=== PATIENT | male | born 1965 | race Caucasian/White ===

== ENCOUNTER 2019-11-20 18:22 | Emergency (ER) | payer MEDICAID ==
[~2019-11-20] VITALS: Ht 162.6 cm; Wt 63.5 kg
[~2019-11-20 18:22] MED LIST: ACET-8386 PO; COM5 PO; OMEP40EC24 PO
[2019-11-20 18:39] VITALS: BP 150/113
--- NOTE | 2019-11-20 18:43 | NUR ---
TRIAGE COMPLETE. VSS. RETURNED TO LOBBY TO WAIT FOR BED IN ED.
--- NOTE | 2019-11-20 20:55 | NUR ---
PT ABULATED TO BED 7 WITHOUT ASSISTANCE. GAIT IS STEADY.
--- NOTE | 2019-11-20 21:02 | NUR ---
PT 54 Y/O MALE BIB FOR R PLANTAR FOOT PAIN X1 DAY. PT STATES PAIN IS 10/10, SHARP AND NON RADIATING. PAIN IS AGRIVATED BY AMBULATION. EDEMA NOTED IN R ANKLE. PT STATES, " I TWISTED MY ANKLE AT WORK YESTERDAY ANF THATS WHEN THE FOOT PAIN STARTED. I DON'T FEEL PAIN IN MY ANKLE. PT DENIES COUGH, OR SOB. AFEBRILE. PT DENIES N/V/D/. RESPIRATIONS ARE EVEN AND UNLABORED. SKIN IS WARM AND DRY TO TOUCH. BED IN LOWEST POSITION AND LOCKED IN PLACE. AT BEDSIDE.
[2019-11-20] MEDS ORDERED: KETOROLAC 30 MG/ML VIAL IM ONE (21:50)
--- NOTE | 2019-11-20 21:52 | NUR ---
PT EDUCATED ON CRUTCH USE AND VERBALIZES UNDERSTANDING. POSTIERIOR SHORT SPLINT PLACED BY DAISY CUMMINS. POSITIVE PULSE S/P PLACEMENT OF SPLINT.
--- NOTE | 2019-11-20 22:15 | NUR ---
PT STATES DECREASE IN R FOOT PAIN FROM 10/10 TO 8/10 S/P IM MEDICATION GIVEN. PT RESTING IN BED R LEG ELEVATED. BED IN LOWEST POSITION AND LOCKED IN PLACE.
[2019-11-20 22:22] VITALS: BP 145/89
== END 2019-11-20 22:20 | disposition home or self-care (01) ==
LOC: MED 18:22
DX: S92.322A Displaced fracture of second metatarsal bone, left foot, initial encounter for closed fracture (principal); E11.9 Type 2 diabetes mellitus without complications; Z79.899 Other long term (current) drug therapy; X50.1XXA Overexertion from prolonged static or awkward postures, initial encounter; Y93.01 Activity, walking, marching and hiking; Y92.89 Other specified places as the place of occurrence of the external cause; Y99.8 Other external cause status
CPT/HCPCS: 29515; 73630; 96372; 99283; J1885

== ENCOUNTER 2021-07-18 13:23 | Inpatient (IN) | payer MEDICAID, SELFPAY ==
[~2021-07-18] VITALS: Ht 167.6 cm; Wt 52.8 kg
[~2021-07-18 13:23] MED LIST changes: -COM5 PO; +PROC-62 PO
[2021-07-18 13:54] VITALS: BP 112/64
--- NOTE | 2021-07-18 14:01 | NUR ---
PT TO [facility] RAMOS SENT TO LAB
[2021-07-18 15:07] LABS: APPEARANCE,URINE HAZY (CLEAR); BILIRUBIN,URINE 1+ (NEGATIVE); BLOOD, URINE 3+ (NEGATIVE); COLOR,URINE YELLOW (YELLOW); LEUKOCYTE ESTERASE ,URINE 1+ (NEGATIVE); NITRITE, URINE NEGATIVE (NEGATIVE); UGLUCOSE 3+ (NEGATIVE)
[2021-07-18 15:17] LABS: RBC,URINE 50-80 /HPF (0-5)
[2021-07-18 15:18] LABS: BASOPHILS % (AUTO) 0.1 % (0.0-2.0); EOSINOPHILS # (AUTO) 0.1 K/uL (0-0.4); EOSINOPHILS % (AUTO) 0.8 % (0.0-4.0); HEMATOCRIT 32.9 % (36-52); HEMOGLOBIN 10.8 g/dL (12.0-18.0); LYMPHOCYTES # (AUTO) 1.2 K/uL (2.0-11.5); LYMPHOCYTES % (AUTO) 6.3 % (20.5-51.1); MEAN CORPUSCULAR HEMOGLOBIN 30 pg (27-31); MEAN CORPUSCULAR HGB CONC 33 g/dL (33-37); MEAN CORPUSCULAR VOLUME 89.7 fL (80-94); MONOCYTES # (AUTO) 1.3 K/uL (0.8-1.0); MONOCYTES % (AUTO) 6.9 % (1.7-9.3); NEUTROPHILS # (AUTO) 15.8 K/uL (1.8-7.7); NEUTROPHILS % (AUTO) 85.9 % (42.2-75.2); PLATELET COUNT (AUTO) 540 K/uL (140-450); RED BLOOD CELL COUNT(AUTO) 3.67 MIL/uL (4.20-6.10); RED CELL DISTRIBUTION WIDTH 12.5 % (11.6-13.7); WHITE BLOOD COUNT (AUTO) 18.4 K/uL (4.8-10.8)
[2021-07-18 15:37] LABS: ALBUMIN 2.7 g/dL (3.4-5.0); ANION GAP 19.3 (8-16); CARBON DIOXIDE 19.9 mmol/L (21-32); CREATININE 1.5 mg/dL (0.6-1.3); POTASSIUM 4.2 mmol/L (3.5-5.1); TOTAL BILIRUBIN 1.1 mg/dL (0.0-1.0)
[2021-07-18] MEDS ORDERED: NACL 0.9% 1,000 ML IV ONE ×2 (15:45)
[2021-07-18] MEDS ORDERED: INSULIN REGULAR, HUMAN 100 UNIT/ML VIAL SUBQ ONE (17:30)
[2021-07-18] MEDS ORDERED: MORPHINE SULFATE 2 MG/ML SYR IVP ONE (17:45)
[2021-07-18] MEDS ORDERED: cefTRIAXone 1,000 MG VIAL ONE (18:13)
--- NOTE | 2021-07-18 18:22 | NUR ---
56/M presents to ED with c/o right testicular pain x4 days. Pt c/o swelling, pain to right testicle radiating to right groin. Patient also c/o polyuria, denies hematuria, dysuria or pain with urination. Patient denies any fever or chills. AOX4. Pt has hx of DM only taking oral medications at this time. hx DM
[2021-07-18] MEDS ORDERED: DOCUSATE SODIUM 100 MG GELCAP PO PRN (18:55)
[2021-07-18] MEDS ORDERED: ONDANSETRON 4 MG/2 ML VIAL IM/IVP PRN (18:55)
[2021-07-18] MEDS ORDERED: guaiFENesin DM 200/20 MG-10 ML 10 ML UDC PO PRN (18:55)
[2021-07-18] MEDS ORDERED: POTASSIUM CHLORIDE 10 MEQ TABER PO PRN (18:55)
[2021-07-18] MEDS ORDERED: ACETAMINOPHEN 325 MG TAB PO PRN (18:55)
[2021-07-18] MEDS ORDERED: ZOLPIDEM 5 MG TAB PO PRN (18:55)
[2021-07-18] MEDS ORDERED: DEXTROSE 50% 50 ML SYR IVP PRN (19:00)
--- NOTE | 2021-07-18 19:23 | NUR ---
REPORT RECEIVED FROM MAAME ANG FOR CONTINUATION OF PATIENT CARE AT THIS TIME.
[2021-07-18 19:28] LABS: BARBITURATE, URINE NEGATIVE ng/ml (NEG <=200)
[2021-07-18 19:29] LABS: BENZODIAZEPINE, URINE NEGATIVE ng/mL (NEG <=200); CANNABINOID, URINE NEGATIVE ng/mL (NEG <=50); COCAINE, URINE NEGATIVE ng/mL (NEG <=300); OPIATE, URINE NEGATIVE ng/mL (NEG <=2000); PHENCYCLIDINE SCREEN,URINE NEGATIVE ng/mL (NEG <=25)
[2021-07-18 19:29] LABS: CHOL/HDL RATIO 3.3 (1-4.5); FREE T4 (FREE THYROXINE) 1.35 ng/dL (0.76-1.46); MAGNESIUM 2.6 mg/dL (1.8-2.4); PHOSPHORUS 4.4 mg/dL (2.5-4.9); THYROID STIMULATING HORMONE 0.93 uIU/mL (0.34-3.74)
[2021-07-18 19:30] LABS: PROTHROMBIN TIME 9.1 secs (10.8-13.4)
--- NOTE | 2021-07-18 19:30 | NUR ---
PATIENT LAYING IN BED LOCKED IN LOWEST POSITION W X1 SIDE RAIL UP. PATIENT DENIES ANY PAIN AT THIS TIME. BREATHING EVEN AND UNLABORED. NAD NOTED, WILL CONTINUE TO MONITOR. CONNECTED TO MONITOR W VSS.
--- NOTE | 2021-07-18 21:13 | NUR ---
PATIENT LAYING IN BED W EYES CLOSED IN R LATERAL POSITION. BED LOCKED IN LOWEST POSITION W X1 SIDE RAIL UP. BREATHING EVEN AND UNLABORED. NAD NOTED, WILL CONTINUE TO MONITOR.
[2021-07-18] MEDS: BLOOD GLUCOSE MONITORING 1 DEV DEV FS SCH (22:46)
[2021-07-18] MEDS: NACL 0.9% 1,000 ML IV SCH (22:46)
[2021-07-18] MEDS: INSULIN LISPRO SLIDING SCALE 100 UNITS/ML VIAL SUBQ PRN (22:54)
--- NOTE | 2021-07-18 23:03 | NUR ---
PATIENT LAYING IN BED W EYES CLOSED IN R LATERAL POSITION. BED LOCKED IN LOWEST POSITION W X1 SIDE RAIL UP. BLANKET ON. BREATHING EVEN AND UNLABORED. NAD NOTED, WILL CONTINUE TO MONITOR.
--- NOTE | 2021-07-19 02:10 | NUR ---
PATIENT REPORTING 6/10 PAIN TO GROIN AREA. REQUESTING PAINMEDICATION AT THIS TIME. VSS.
--- NOTE | 2021-07-19 02:15 | NUR ---
MARISA SAMPLE COLECTED FROM PATIENT NARES AND SENT TO LAB.
[2021-07-19] MEDS: HYDROcodone/APAP 7.5/325 MG 1 TAB PO PRN ×3 (02:17→18:08)
--- NOTE | 2021-07-19 04:35 | NUR ---
PATIENT LAYING IN BED W EYES CLOSED IN L LATERAL POSITION. BED LOCKED IN LOWEST POSITION W X1 SIDE RAIL UP. BLANKET ON. 0.9 NS FLUIDS RUNNING TO L ARM AT 90 ML/HR W 295ML VTBI. BREATHING EVEN AND UNLABORED. NAD NOTED, WILL CONTINUE TO MONITOR.
--- NOTE | 2021-07-19 06:26 | NUR ---
PATIENT LAYING IN BED W EYES CLOSED IN SUPINE POSITION. BED LOCKED IN LOWEST POSITION W X1 SIDE RAIL UP. BLANKET ON. 0.9 NS FLUIDS RUNNING TO L ARM AT 90 ML/HR W 225ML VTBI. BREATHING EVEN AND UNLABORED. NAD NOTED, WILL CONTINUE TO MONITOR. CONNECTED TO MONITOR W VSS.
[2021-07-19] MEDS: BLOOD GLUCOSE MONITORING 1 DEV DEV FS SCH ×4 (06:45→21:03)
--- NOTE | 2021-07-19 06:50 | NUR ---
PATIENT AMBULATED TO BATHROOM W STEADY GAIT. DENIES ANY PAIN AT THIS TIME.
[2021-07-19] MEDS: INSULIN LISPRO SLIDING SCALE 100 UNITS/ML VIAL SUBQ PRN ×4 (06:54→21:14)
--- NOTE | 2021-07-19 07:22 | NUR ---
Pt report given to MAAME DURBIN AND MAAME DAVID. Transfer of care at this time.
--- NOTE | 2021-07-19 07:23 | NUR ---
REPORT AND TRANSFER OF CARE RECEIVED FROM MAAME BUENROSTRO.
--- NOTE | 2021-07-19 07:24 | NUR ---
LABS AT BEDSIDE COLLECTING BLOOD SAMPLES.
[2021-07-19 07:59] LABS: BASOPHILS % (AUTO) 0.2 % (0.0-2.0); EOSINOPHILS # (AUTO) 0.1 K/uL (0-0.4); EOSINOPHILS % (AUTO) 0.7 % (0.0-4.0); HEMATOCRIT 30.3 % (36-52); HEMOGLOBIN 10.1 g/dL (12.0-18.0); LYMPHOCYTES # (AUTO) 1.3 K/uL (2.0-11.5); LYMPHOCYTES % (AUTO) 7.7 % (20.5-51.1); MEAN CORPUSCULAR HEMOGLOBIN 30 pg (27-31); MEAN CORPUSCULAR HGB CONC 33 g/dL (33-37); MEAN CORPUSCULAR VOLUME 88.9 fL (80-94); MONOCYTES # (AUTO) 1.2 K/uL (0.8-1.0); MONOCYTES % (AUTO) 7.1 % (1.7-9.3); NEUTROPHILS # (AUTO) 13.9 K/uL (1.8-7.7); NEUTROPHILS % (AUTO) 84.3 % (42.2-75.2); PLATELET COUNT (AUTO) 479 K/uL (140-450); RED BLOOD CELL COUNT(AUTO) 3.41 MIL/uL (4.20-6.10); RED CELL DISTRIBUTION WIDTH 12.9 % (11.6-13.7); WHITE BLOOD COUNT (AUTO) 16.5 K/uL (4.8-10.8)
[2021-07-19 08:03] LABS: ANION GAP 17.6 (8-16); CARBON DIOXIDE 17.3 mmol/L (21-32); CREATININE 1.1 mg/dL (0.6-1.3); POTASSIUM 3.9 mmol/L (3.5-5.1)
--- NOTE | 2021-07-19 09:29 | NUR ---
DR AQUINO AT BEDSIDE SPEAKING WITH PATIENT.
[2021-07-19] MEDS: PANTOPRAZOLE 40 MG TABEC PO SCH (09:38)
--- NOTE | 2021-07-19 09:39 | NUR ---
1000mL 0.9% NS FLUIDS INITIATED/CONTINUED @ 90 ML/HR.
[2021-07-19] MEDS: NACL 0.9% 1,000 ML IV SCH ×2 (09:40→17:09)
--- NOTE | 2021-07-19 11:12 | NUR ---
PATIENT IN BED RESTING AT THIS TIME, VSS, RR EVEN AND UNLABORED.
--- NOTE | 2021-07-19 11:37 | NUR ---
ACCUCHECK 204, INSULIN 4U HUMALOG COVERAGE GIVEN.
[2021-07-19] MEDS ORDERED: cefTRIAXone 1,000 MG VIAL ONE (15:11)
--- NOTE | 2021-07-19 15:13 | NUR ---
PT USING BEDSIDE URINAL
--- NOTE | 2021-07-19 16:22 | NUR ---
ACCUCHECK 285
--- NOTE | 2021-07-19 17:25 | NUR ---
PATIENT WITH BOTH EYES CLOSED LAYING ON LEFT SIDE IN SEMI-FOWLERS POSITION. TRACER CLERK REMAINS IN PLACE. VSS; RR EVEN/UNLABORED. BED LOCKED IN LOWEST POSITION, SIDE RAILS X 1, CALL LIGHT IN REACH.
--- NOTE | 2021-07-19 18:30 | NUR ---
PATIENT STATES MINOR RELIEF TO PAIN 06/21 AFTER NORCO 7.5-325. DENIES ANY NAUSEA. LIMITED RADIOLOGY TECHNICIAN REMAINS IN PLACE. VSS; RESPIRATIONS EVEN/UNLABORED. BED LOCKED IN LOEWST POSITION, SIDE RAILS X 1, CALL LIGHT IN REACH.
--- NOTE | 2021-07-19 19:16 | NUR ---
DINNER TRAY AT BEDSIDE.
--- NOTE | 2021-07-19 19:21 | NUR ---
REPORT RECIEVED FROM MAAME LOCKE FOR CONTINUITY OF CARE.
--- NOTE | 2021-07-19 19:21 | NUR ---
REPORT AND TRANSFER OF CARE GIVEN TO MAAME DEMPSEY.
--- NOTE | 2021-07-19 19:49 | NUR ---
Patient appears to be resting comfortably in bed, JUST FINISHED DINNER. Vital Signs within normal limits. Respirations even and unlabored. IV TO LEFT FORARM PATENT. DENIES ANY NEW NEEDS AT THIS TIME, WILL CONTINUE TO MONITOR.
--- NOTE | 2021-07-19 21:30 | NUR ---
Patient appears to be resting comfortably in bed, EYES CLOSED. Vital Signs within normal limits. Respirations even and unlabored. FLUIDS RUNNING ORDERED WITHOUT DIFFICULTY. DENIES PAIN OR DISCOMFORT AT THIS TIME. WILL CONTINUE TO MONITOR.
--- NOTE | 2021-07-19 22:09 | NUR ---
ATTEMPTED TO CALL FOR ADMISSION REPORT. NO ANSWER, WILL TRY AGAIN.
--- NOTE | 2021-07-19 22:26 | NUR ---
Patient will be admitted to care of MD AQUINO. Admited to TELE. Will go to room 106B. Belongings list completed. Report to MAAME DOVER (ORIENTING WITH MAAME RO).
--- NOTE | 2021-07-19 22:32 | NUR ---
PT TAKEN TO TELE 106B VIA [facility] WITH KE ISABEL AND SUKUMAR CUMMINS. JAZZMINE RN AND JAYJAY, RN AT BEDSIDE TO RECIEVE PT.
[2021-07-19 22:37] VITALS: BP 150/74
--- NOTE | 2021-07-19 22:37 | NUR ---
PT WAS ADMITTED VIA ER, MRSA SWAB TAKEN, ADMIT VITALS BP 150/74, HR: 97, O2 SAT: 98%, TEMP: 98.5 , RR 18, PT IS NOT IN DISTRESS, DENIES PAIN AT THE MOMENT, NS RUNNING AT 90ML/HR, 20 G LEFT FOREARM, A&O X4, AMBULATORY, SAFETY MEASURES IN PLACE, CALL LIGHT WITHIN REACH, WILL CONTINUE TO MONITOR, PT GIVEN HYGIENIC PRODUCTS AND WATER AT BEDSIDE.
--- NOTE | 2021-07-20 00:44 | NUR ---
PT IS ASLEEP, NO SIGNS OF DISTRESS, ON ROOM AIR, OBSERVATION OF CHEST RISE AND FALL, CALL LIGHT WITHIN REACH, WILL CONTINUE TO MONITOR.
--- NOTE | 2021-07-20 02:13 | NUR ---
PATIENT IS ASLEEP, KEPT COMFORTABLE, OBSERVATION OF CHEST RISE AND FALL, SAFETY MEASURES IN PLACE, CALL LIGHT WITHIN REACH.
[2021-07-20 04:00] VITALS: BP 135/75
[2021-07-20] MEDS: HYDROcodone/APAP 7.5/325 MG 1 TAB PO PRN ×2 (04:04→13:20)
[2021-07-20] MEDS: NACL 0.9% 1,000 ML IV SCH ×2 (04:16→13:24)
--- NOTE | 2021-07-20 04:28 | NUR ---
PATIENT IS IN BED, KEPT COMFORTABLE, ASKED FOR PRN PAIN MED - GAVE ZORAN AT 04:04, WILL REASSESS IN AN HOUR IF PAIN MED IS EFFECTIVE, VITAL SIGNS TAKEN BP 135/75, HR 92, O2 99%, RR 20, TEMP 98.9, WILL CONTINUE TO MONITOR,
--- NOTE | 2021-07-20 06:03 | NUR ---
PATIENT IN BED, SAFETY MEASURES IN PLACE, REASSESSED PAIN AT 0504 AND PT STATES DECREASED PAIN, CALL LIGHT WITHIN REACH, WILL CONTINUE TO MONITOR.
[2021-07-20] MEDS: INSULIN LISPRO SLIDING SCALE 100 UNITS/ML VIAL SUBQ PRN ×2 (06:56→13:30)
[2021-07-20] MEDS: BLOOD GLUCOSE MONITORING 1 DEV DEV FS SCH ×2 (06:56→11:30)
[2021-07-20 07:34] LABS: BASOPHILS # (AUTO) 0.1 K/uL (0.00-0.22); BASOPHILS % (AUTO) 0.4 % (0.0-2.0); EOSINOPHILS # (AUTO) 0.1 K/uL (0-0.4); EOSINOPHILS % (AUTO) 0.6 % (0.0-4.0); LYMPHOCYTES % (AUTO) 6.9 % (20.5-51.1); MEAN CORPUSCULAR HEMOGLOBIN 30 pg (27-31); MEAN CORPUSCULAR HGB CONC 33 g/dL (33-37); MEAN CORPUSCULAR VOLUME 89.8 fL (80-94); MONOCYTES # (AUTO) 1.2 K/uL (0.8-1.0); MONOCYTES % (AUTO) 8.4 % (1.7-9.3); NEUTROPHILS # (AUTO) 12.1 K/uL (1.8-7.7); NEUTROPHILS % (AUTO) 83.7 % (42.2-75.2); PLATELET COUNT (AUTO) 499 K/uL (140-450); RED BLOOD CELL COUNT(AUTO) 3.01 MIL/uL (4.20-6.10); RED CELL DISTRIBUTION WIDTH 12.5 % (11.6-13.7); WHITE BLOOD COUNT (AUTO) 14.5 K/uL (4.8-10.8)
[2021-07-20 07:39] LABS: CARBON DIOXIDE 17.2 mmol/L (21-32); CREATININE 0.9 mg/dL (0.6-1.3); POTASSIUM 4.2 mmol/L (3.5-5.1)
--- NOTE | 2021-07-20 07:40 | NUR ---
GAVE ENDORSEMENT TO AM SHIFT RN. PATIENT IN BED, KEPT COMFORTABLE, PT IS STABLE, SCHEDULED MEDS GIVEN, ALL INTERVENTIONS INITIATED
[2021-07-20 08:00] VITALS: BP 132/61
--- NOTE | 2021-07-20 08:00 | NUR ---
RECEIVED REPORT FROM DETENTION WORKER FOR CONTINUITY OF CARE. INITIAL ASSESSMENT INITIATED. WITH IVF ON GOING AND INFUSING WELL. ON HEART MONITOR SHOWS SR. DENIES PAIN AT THIS TIME. NEEDS ATTENDED. WILL CONTINUE TO MONITOR.
--- NOTE | 2021-07-20 08:41 | NUR ---
PATIENT HAS BEEN SCREENED AND CATEGORIZED LOW NUTRITION RISK. PATIENT WILL BE SEEN WITHIN 7 DAYS OF ADMISSION. 07/26/[address] Addendum: 07/20/21 at [address] 07/25/21
[2021-07-20] MEDS: PANTOPRAZOLE 40 MG TABEC PO SCH (08:50)
[2021-07-20 09:07] LABS: T4 (THYROXINE) 7.5 ug/dL (4.5-12.0)
--- NOTE | 2021-07-20 09:20 | NUR ---
DUE MEDS GIVEN, SEEN BY DR. AQUINO AND DISCUSSED PLAN OF CARE. WILL CONTINUE TO MONITOR.
[2021-07-20] MEDS ORDERED: CEPH250C16 PO (11:07)
[2021-07-20] MEDS ORDERED: ACET-8386 PO (11:10)
[2021-07-20 12:00] VITALS: BP 124/64
[2021-07-20 16:00] VITALS: BP 117/65
[2021-07-25] MEDS ORDERED: METF-1022 PO (17:22)
== END 2021-07-20 17:09 | disposition home or self-care (01) | DRG 720 ==
LOC: MED 13:23 → MTU 18:29
PROVIDERS: ADMIT Family Medicine; ATTEND Family Medicine
DX: A41.9 Sepsis, unspecified organism (principal); N17.0 Acute kidney failure with tubular necrosis; G93.41 Metabolic encephalopathy; E43 Unspecified severe protein-calorie malnutrition; N39.0 Urinary tract infection, site not specified; E11.65 Type 2 diabetes mellitus with hyperglycemia; E87.1 Hypo-osmolality and hyponatremia; N45.3 Epididymo-orchitis; Z20.822 Contact with and (suspected) exposure to COVID-19; F15.10 Other stimulant abuse, uncomplicated; N43.3 Hydrocele, unspecified; K21.9 Gastro-esophageal reflux disease without esophagitis; Z68.1 Body mass index [BMI] 19.9 or less, adult; Z79.899 Other long term (current) drug therapy
CPT/HCPCS: 36415; 71045; 76770; 76870; 80048; 80053; 80305; 81001; 82150; 82803; 82948; 83036; 83605; 83690; 83735; 83880; 84100; 84154; 84436; 84439; 84443; 84479; 84484; 85025; 85610; 85730; 87040; 87081; 87086; 87186; 96365; 96375; 99291; J0696; J1815; J2270; J7060; Q0092